=== PATIENT | male | born 1975 | race Caucasian/White ===

== ENCOUNTER 2016-12-10 10:04 | Emergency (ER) | payer OTHER ==
[~2016-12-10] VITALS: Ht 177.8 cm; Wt 99.8 kg
[~2016-12-10 10:04] MED LIST: ASPI81TA2 PO; LISI1TAB7 PO
[2016-12-10] MEDS ORDERED: IV NORMAL SALINE 1,000ML 1,000 ML IV SCH (11:00)
[2016-12-10] MEDS ORDERED: ONDANSETRON PF 4 MG/2 ML VIAL. IV ONE (11:00)
--- NOTE | 2016-12-10 11:00 | RAD ---
Indication: Left arm tingling for one day. Hypertension. Technique: Upright portable chest radiograph was obtained. Comparison is from November 19, 2015. Findings: The lungs are clear. The cardiopulmonary silhouette is within normal limits. The bony structures are intact. Impression: No active pulmonary disease.
[2016-12-10] MEDS ORDERED: ASPIRIN 81 MG TAB.CHEW PO ONE (11:10)
[2016-12-10 11:18] LABS: BASO # 0.1 x10^3/uL (0.0-0.2); BASO % 1 % (0-3); EOS % 1 % (0-3); HEMATOCRIT 45.3 % (39.0-53.0); HEMOGLOBIN 15.2 g/dL (13.0-17.5); LYMPH % 26 % (24-48); MEAN CORPUSCULAR HEMOGLOBIN 31 pg (25-35); MEAN CORPUSCULAR HGB CONC 34 g/dL (31-37); MEAN CORPUSCULAR VOLUME 93 fL (79-100); MONO # 0.6 x10^3/uL (0.0-1.1); MONO % 8 % (0-9); NEUT # 4.9 x10^3uL (1.8-7.7); NEUT % 65 % (31-73); PLATELET COUNT 288 x10^3/uL (140-400); RED BLOOD COUNT 4.87 x10^6/uL (4.30-5.70); RED CELL DISTRIBUTION WIDTH 13.2 % (11.5-14.5); WHITE BLOOD COUNT 7.6 x10^3/uL (4.0-11.0)
[2016-12-10 11:36] LABS: ALBUMIN 4.1 g/dL (3.4-5.0); ALBUMIN/GLOBULIN RATIO 1.2 (1.0-1.7); CALCIUM 9.2 mg/dL (8.5-10.1); CREATININE 1.2 mg/dL (0.7-1.3); GFR 66.7; POTASSIUM 3.8 mmol/L (3.5-5.1); TOTAL BILIRUBIN 0.4 mg/dL (0.2-1.0); TOTAL PROTEIN 7.4 g/dL (6.4-8.2)
--- NOTE | 2016-12-10 11:46 | PHYS DOC ---
General Chief Complaint: UPPER EXTREMITY INJURY Stated Complaint: L ARM/LEG NUMB; LIGHTHEADED Time Seen by MD: 10:14 Source: patient Exam Limitations: no limitations Problems: History of Present Illness Initial Comments Pt is 41/M to ED c/o left arm and left 1-2 toes tingling. Pt states that earlier today getting ready for work he had a few episodes of left arm and first-second toes tingling. No weakness/trauma/headache/CP/sob/n/v /diaphoresis. He had been tired with dyspepsia the day prior with generalized GI upset and nausea but no vomitting, and denies current symptoms in the ED. 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 No SI/HI no prior psychiatric diagnosis. 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 Timing/Duration: 1-3 hours Severity: mild Modifying Factors: improves with other Associated Symptoms: other Allergies: Uncoded Allergies: advocados (Allergy, Unknown, 11/19/15) Past Medical History Medical History: hypertension Surgical History: appendectomy Family History Significant Family History: heart disease Social History Smoker: cigarettes, less than 1 pack/day Alcohol: occasionally Drugs: none Review of Systems Constitutional: denies chills, denies diaphoresis, denies fever, denies malaise Respiratory: denies cough, denies shortness of breath, denies wheezing Cardiovascular: denies chest pain, denies palpitations, denies syncope Gastrointestinal: denies abdominal pain, denies diarrhea, denies nausea, denies vomiting Musculoskeletal: see HPIdenies back pain, denies joint swelling, denies neck pain Skin: denies dryness, denies lesions, denies lumps Psychiatric/Neurological: see HPIdenies headache, denies numbness, denies paresthesia, denies pre-existing deficit, denies seizure, denies tingling, denies weakness Physical Exam General Appearance: WD/WN, mild distress Eyes: bilateral eye EOMI, bilateral eye PERRL, bilateral eye normal inspection Ear, Nose, Throat: hearing grossly normal, normal ENT inspection, normal pharynx Neck: non-tender, supple Respiratory: normal breath sounds, no respiratory distress Cardiovascular: normal peripheral pulses, regular rate, rhythm Gastrointestinal: normal bowel sounds, soft (ND, generalized mild TTP no r/g/ mass) Rectal: deferred Back: no CVA tenderness, no vertebral tenderness Extremities: non-tender, normal inspection Neurologic/Psychiatric: jewel stringer II-XII nml as tested, no motor/sensory deficits, alert, normal mood/affect, oriented x 3 Skin: normal color, warm/dry Orders, Labs, Meds EKG: NSR 64 bpm, no STEMI CXR: no acute process Pt did develop nausea in ED no vomitting nausea resolved with zofran. Loose stool in ED no blood Labs unremarkable I discussed treatment options. Pt does have risk factors for CAD however today' s sx are not consistent. Offered observation admission pt refused, states he's stressed and needs rest and plans to take some vacation time from work. Will return if needed, he expressed agreement/understanding with treatment plan. Departure Time of Disposition: 12:07 Disposition: 01 HOME, SELF-CARE Diagnosis: nausea, neuropathy NOS, tobaccoism, HTN Condition: IMPROVED Patient Instructions: Nausea and Vomiting, Ggfy-[id number], Smoking, You Can Quit , [id number] Additional Instructions: Rest, no strenuous activity. Off work thru 12/12. Aggressive hydration with gatorade, water. Stop smoking, seek medical assistance if necessary. Follow up with your doctor this week for recheck. Return to ED with new or changing symptoms. ROBLES FARFAN DO Dec 10, 2016 11:46
[2016-12-10 11:49] LABS: BARBITURATES NEG (NEG); BENZODIAZEPINES NEG (NEG); CANNABINOIDS NEG (NEG); COCAINE NEG (NEG); METHADONE NEG (NEG); OPIATES NEG (NEG); PHENCYCLIDINE NEG (NEG)
[2016-12-10 11:50] LABS: AMPHETAMINE/METHAMPHETAMINE NEG (NEG)
[2016-12-10 11:51] LABS: BACTERIA,URINE 0 /HPF (0-FEW); BILIRUBIN,URINE NEG (NEG); CLARITY,URINE CLEAR; COLOR,URINE YELLOW; GLUCOSE,URINE NEG (NEG); NITRITE,URINE NEG (NEG); RBC,URINE 0 /HPF (0-2); SQUAMOUS EPITHELIAL CELL,UR OCC /LPF; UROBILINOGEN,URINE 0.2 mg/dL (0.2 mg/dL); WBC,URINE 0 /HPF (0-4)
[2016-12-10 12:31] VITALS: BP 128/81
--- NOTE | 2016-12-17 12:25 | EKG ---
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
== END 2016-12-10 12:32 | disposition home or self-care (01) ==
LOC: ER 10:04
DX: G62.9 Polyneuropathy, unspecified (principal); R11.0 Nausea; I10 Essential (primary) hypertension; F17.210 Nicotine dependence, cigarettes, uncomplicated; Z90.49 Acquired absence of other specified parts of digestive tract
CPT/HCPCS: 36415; 71010; 80053; 80305; 80320; 81001; 82550; 83690; 83880; 84484; 85027; 93005; 96361; 96374; 99285; J2405; G0480; G0481; J7030

== ENCOUNTER 2020-01-20 15:19 | Emergency (ER) | payer OTHER ==
[~2020-01-20] VITALS: Ht 177.8 cm; Wt 110.9 kg
[~2020-01-20 15:19] MED LIST changes: +ASPI-630 PO; -ASPI81TA2 PO; +LISI1TAB20 PO; -LISI1TAB7 PO
[2020-01-20 15:41] VITALS: BP 136/96
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
--- NOTE | 2020-01-20 16:22 | RAD ---
EXAM: 2 views left elbow 2 views left humerus DATE: 01/20/2020 3:43 PM INDICATION: Left ankle pain. COMPARISON: No Prior FINDINGS: No evidence of acute fracture or dislocation of the elbow or left humerus. No joint effusion. Olecranon enthesopathy. Soft tissue swelling overlying the olecranon. IMPRESSION: No evidence of acute fracture or dislocation. Soft tissue swelling overlying the olecranon. Electronically signed by: Esteban Talley MD (01/20/2020 4:19 PM) [id number]
[2020-01-20] MEDS ORDERED: NAPR-682 PO (16:53)
== END 2020-01-20 17:04 | disposition home or self-care (01) ==
LOC: ER 15:19
DX: S50.02XA Contusion of left elbow, initial encounter (principal); I10 Essential (primary) hypertension; F17.200 Nicotine dependence, unspecified, uncomplicated; Z91.018 Allergy to other foods; Y04.0XXA Assault by unarmed brawl or fight, initial encounter; Y93.89 Activity, other specified; Y92.89 Other specified places as the place of occurrence of the external cause; Y99.8 Other external cause status
CPT/HCPCS: 73060; 73080; 99284